=== PATIENT | female | born 1995 | race Caucasian/White ===

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

== ENCOUNTER 2018-08-01 13:24 | Emergency (ER) | payer BC ==
[~2018-08-01] VITALS: Ht 175.3 cm; Wt 59.1 kg
[2018-08-01 13:25] VITALS: Ht 175.3 cm; Wt 59.1 kg
[2018-08-01 14:30] LABS: BASOPHILS 0.2 % (0-2); EOSINOPHILS 2.6 % (0-7); HEMATOCRIT 37.2 % (36.0-48.0); HEMOGLOBIN 12.4 g/dL (12-16); IMMATURE GRANULOCYTES 0.2 % (0-5); LYMPHOCYTES 20.7 % (15-50); MCHC 33.3 g/dL (31.0-37.0); MCV 90.1 fL (80.0-100.0); MEAN PLATELET VOLUME 10.6 fL (7.4-10.4); MONOCYTES 5.8 % (2-11); NEUTROPHILS 70.5 % (40-80); PLATELET COUNT 167 10x3/uL (130-400); RBC 4.13 10x6/uL (4.00-5.40); RDW 12.8 % (11.5-14.5); WBC 6.1 10x3/uL (4.8-10.8)
[2018-08-01 14:45] LABS: ALBUMIN 3.6 g/dL (3.4-5.0); ALKALINE PHOSPHATASE 85 U/L (46-116); ALT (SGPT) 26 U/L (10-68); BILIRUBIN - TOTAL 0.59 mg/dL (0.2-1.3); CALC OSMOLALITY 279 mosm/kg (275-300); CALCIUM 8.6 mg/dL (8.5-10.1); CARBON DIOXIDE 27.7 mmol/L (21.0-32.0); CHLORIDE - SERUM 107 mmol/L (98-107); CREATININE - SERUM 0.7 mg/dL (0.6-1.3); GLUCOSE 84 mg/dL (74-106); POTASSIUM - SERUM 3.5 mmol/L (3.5-5.1); PROTEIN - SERUM 6.8 g/dL (6.4-8.2); SODIUM 142 mmol/L (136-145); UREA NITROGEN 8 mg/dL (7-18); eGFR NON AFRICAN AMERICAN > 90 mL/min (90-120)
[2018-08-01 14:52] LABS: HCG SERUM NEGATIVE (NEGATIVE)
[2018-08-01 15:01] LABS: APPEARANCE CLEAR (CLEAR); BILIRUBIN NEGATIVE (NEGATIVE); COLOR YELLOW (YELLOW); GLUCOSE NEGATIVE (NEGATIVE); KETONE NEGATIVE (NEGATIVE); NITRITE NEGATIVE (NEGATIVE); PROTEIN TRACE mg/dL (NEGATIVE); UROBILINOGEN NORMAL (NORMAL)
[2018-08-01 15:04] LABS: INR 1.15 (0.85-1.17); PROTIME 14.2 SECONDS (11.6-15.0)
[2018-08-01] MEDS ORDERED: HYDROCODON-ACE1 EAC2 PO (16:04)
[2018-08-01 16:50] VITALS: BP 93/58
== END 2018-08-01 16:50 | disposition home or self-care (01) ==
LOC: D.ER 13:24
PROVIDERS: Family Medicine
DX: S70.02XA Contusion of left hip, initial encounter (principal); V80.010A Animal-rider injured by fall from or being thrown from horse in noncollision accident, initial encounter; Y93.52 Activity, horseback riding; Y92.89 Other specified places as the place of occurrence of the external cause; M25.552 Pain in left hip

== ENCOUNTER 2019-01-24 07:32 | Day surgery (SDC) | payer BC ==
[~2019-01-24] VITALS: Ht 167.6 cm; Wt 69.9 kg
[~2019-01-24 07:32] MED LIST changes: +HYDROCODON-ACE1 EAC2 PO
[2019-01-24] MEDS ORDERED: SULFAMETHOXAZOL1 TA2 PO (08:21)
[2019-01-24 08:32] VITALS: BP 113/61; Ht 167.6 cm; Wt 69.9 kg
[2019-01-24 08:45] LABS: HCG URINE NEGATIVE (NEGATIVE)
[2019-01-24 08:49] LABS: HEMATOCRIT 40.4 % (36.0-48.0); HEMOGLOBIN 13.6 g/dL (12-16); MCH 30.9 pg (26.0-34.0); MCHC 33.7 g/dL (31.0-37.0); MCV 91.8 fL (80.0-100.0); MEAN PLATELET VOLUME 10.8 fL (7.4-10.4); RBC 4.4 10x6/uL (4.00-5.40); RDW 12.8 % (11.5-14.5); WBC 5.5 10x3/uL (4.8-10.8)
[2019-01-24] MEDS ORDERED: HYDROCODON-ACE1 EA10 PO (11:31)
--- NOTE | 2019-01-24 16:16 | NUR ---
1225 ARRIVED TO ROOM FOOT ELEVATED ON 2 PILLOWS AND ICE PACKS TO LOWER EXTREMITIES GEOFFREY. TOES WARM AND PINK. WIGGLES FREELY. VS STABLE. PAIN TOLERABLE. RECIEVED A FULL LIQ TRAY.
--- NOTE | 2019-01-24 16:17 | NUR ---
1325 ATE WELL AND HOB LOWERED PER REQUEST. 1400 MEDICATED FOR PAIN. 07/23 MOTHER AT BEDSIDE 1500 PAIN RELIEVED AND IV REMOVED. ASSISTED WITH GETTING DRESSED AND INSTRUCTIONS GIVEN AND RX. 1515 VOIDED IN BATHROOM PAIN RELIEVED AND PT D/C HOME IN W/C WITH EXT ELEVATED GEOFFREY
--- NOTE | 2019-01-27 08:37 | OP ---
PATIENT NAME: PIOTR JEFFREY MEDICAL RECORD: [id number] :97 LOCATION:[facility] ADMISSION DATE: SURGEON: GERDA RANDOLPH MD DATE OF OPERATION: 01/24/2019 PREOPERATIVE DIAGNOSIS: Bilateral tibial and fibular ingrown toenails, bilateral great toes. POSTOPERATIVE DIAGNOSIS: Bilateral tibial and fibular ingrown toenails, bilateral great toes. PROCEDURE: Excision of ingrown toenails, both medial and lateral aspects of both toes. SURGEON: Gerda Randolph MD ANESTHESIA: General. INTRAOPERATIVE COMPLICATIONS: None. SUMMARY OF PATHOLOGIC FINDINGS: The patient had ingrown toenails on either side of the great toe on both sides of the feet. These required excision. No ablation or marsupialization was done today. OPERATIVE SUMMARY IN DETAIL: After obtaining the appropriate preoperative orthopedic surgery consent as well as anesthetic consultation, evaluation, and clearance, the patient was brought to the operating room and placed on the operating table in supine position. After adequate general laryngeal mask airway was administered, bilateral lower extremities was then prepped and draped in routine sterile fashion. A digital block was done on both sides of both great toes. Attention was first turned to the left, which was most problematic on the medial side. A sharp iris scissors was utilized to cut approximately the medial fifth all the way back to the germinal matrix. The entire toenail was removed in its entirety. Arcanum elevator was then used to clean out the gutter and it was irrigated. This was repeated on the lateral/tibial side of the left great toe. The entire lateral one-fifth of the toenail was removed back to the sterile matrix. Again, no matrix ablation or marsupialization was performed on either toe. Lastly, attention was turned to the right toe. This was repeated with the first tibial or medial one-fifth being removed back to the sterile matrix and pulled. Again, the gutter was cleaned free of any nail tissue and irrigated and then this was repeated on the lateral side of the right great toe. Having completed this, sterile bandages were applied. The patient was awakened and taken to the recovery room in stable condition. All final needle and sponge counts were correct. TRANSINT:[id number] Voice Confirmation ID: [id number] DOCUMENT ID: [id number] OPERATIVE REPORT [id number] Rozina GERDA RANDOLPH MD at 0837 CC: [id number] DICTATION DATE: 01/26/19 1350 OB/GYN PHYSICIAN: 01/26/194 [facility] 01/24/19 [id number] [place] [address]
== END 2019-01-24 15:45 | disposition home or self-care (01) ==
LOC: D.OPS 07:32 → D.PAN 09:30 → D.OPS 13:45
PROVIDERS: Anesthesiology; ATTEND Orthopaedic Surgery
DX: L60.0 Ingrowing nail (principal)

== ENCOUNTER 2019-12-15 01:59 | Emergency (ER) | payer SELFPAY ==
[~2019-12-15] VITALS: Ht 167.6 cm; Wt 72.7 kg
[~2019-12-15 01:59] MED LIST changes: +HYDROCODON-ACE1 EA10 PO; +SULFAMETHOXAZOL1 TA2 PO
[2019-12-15 02:04] VITALS: Ht 167.6 cm; Wt 72.7 kg
[2019-12-15 02:33] LABS: BASOPHILS 0.2 % (0-2); EOSINOPHILS 0.4 % (0-7); HEMATOCRIT 39.4 % (36.0-48.0); HEMOGLOBIN 13.2 g/dL (12-16); LYMPHOCYTES 9.2 % (15-50); MCH 30.8 pg (26.0-34.0); MCHC 33.5 g/dL (31.0-37.0); MCV 91.8 fL (80.0-100.0); MEAN PLATELET VOLUME 10.2 fL (7.4-10.4); MONOCYTES 4.6 % (2-11); NEUTROPHILS 85.6 % (40-80); PLATELET COUNT 161 10x3/uL (130-400); RBC 4.29 10x6/uL (4.00-5.40); RDW 12.9 % (11.5-14.5); WBC 5.2 10x3/uL (4.8-10.8)
[2019-12-15 02:41] LABS: BILIRUBIN NEGATIVE (NEGATIVE); HCG URINE NEGATIVE (NEGATIVE); KETONE NEGATIVE (NEGATIVE); NITRITE NEGATIVE (NEGATIVE); UROBILINOGEN NORMAL mg/dL (< 2)
[2019-12-15 02:42] LABS: ANION GAP 10.3 mmol/L (8-16); CALCIUM 8.7 mg/dL (8.5-10.1); CARBON DIOXIDE 25.2 mmol/L (21.0-32.0); CREATININE - SERUM 1.1 mg/dL (0.6-1.3); POTASSIUM - SERUM 3.5 mmol/L (3.5-5.1)
[2019-12-15 02:44] LABS: BACTERIA FEW HPF (NONE SEEN); EPITHELIAL CELLS 0-5 /hpf (0-5); WHITE CELLS - URINE 0-5 HPF (0-4)
[2019-12-15 02:56] LABS: ALBUMIN 3.8 g/dL (3.4-5.0); BILIRUBIN - TOTAL 0.84 mg/dL (0.2-1.3); C-REACTIVE PROTEIN 3.4 mg/dL (0.0-0.9); PROTEIN - SERUM 7.5 g/dL (6.4-8.2)
[2019-12-15] MEDS ORDERED: HYDROCODON-ACE1 EAC7 PO (06:41)
[2019-12-15 12:12] VITALS: BP 97/49
[2019-12-15] MEDS ORDERED: ZOFRAN ODT4 MG/UDTAB PO (12:16)
[2019-12-15] MEDS ORDERED: NORCO 7.5-3251 EACH PO (12:16)
== END 2019-12-15 13:17 | disposition home or self-care (01) ==
LOC: D.ER 01:59
PROVIDERS: Family Medicine
DX: R10.31 Right lower quadrant pain (principal)